=== PATIENT | female | born 1940 | race Caucasian/White ===

== ENCOUNTER 2022-08-01 14:14 | Inpatient (IN) | payer MEDICARE, SELFPAY ==
--- NOTE | ~2022-08-01 | CT_ITS ---
EXAMINATION: CT ABDOMEN AND PELVIS WITHOUT AND WITH CONTRAST CLINICAL INFORMATION: GI bleeding. COMPARISON: None. TECHNIQUE: Contiguous axial thin section helical images of the abdomen and pelvis were performed before and following the administration of oral contrast and 85 mL of intravenous Omnipaque 350. The data set was reformatted in the coronal and sagittal planes and reviewed on an independent workstation. FINDINGS: LUNG BASES: No focal parenchymal or pleural disease. No pericardial effusion. LIVER, GALLBLADDER, BILIARY TREE: Within normal limits. No focal lesion. PANCREAS: No mass or inflammatory changes. SPLEEN: No focal lesion or enlargement. ADRENAL GLANDS AND KIDNEYS: Left adrenal nodule measures -5 Hounsfield units consistent with a lipid rich adenoma. Measures up to 16 mm. No follow-up indicated. No right adrenal lesion. No hydronephrosis or side. Bilateral renal cortical cysts which appear simple. Minimal calcification within the right renal exophytic upper pole lesion. Bosniak 2. No follow-up indicated.. PELVIS: There is no pelvic mass. Pelvic organs within normal limits. URETERS AND BLADDER: Within normal limits.. BOWEL LOOPS: Small axial type hiatus hernia. Medication pills within the gastric lumen noted. There is no evidence for any active GI bleeding. No obstruction. No serosal lesion. Normal appendix.. LYMPHOVASCULAR STRUCTURES: No pathologic enlargement. BONES: No lytic or sclerotic lesions. No fracture. CT/CT gi bleed abd pel wo/w IVcon IMPRESSION: 1. No evidence for any active GI bleeding. 2. Incidental findings as above.
[2022-08-01 14:18] VITALS: BP 143/93; PULSE 77; RESP 19; TEMP 36.6; O2SAT 96; BMI 24.1
--- NOTE | 2022-08-01 14:39 | ED_ITS ---
HPI - General Adult General Chief complaint: GI Bleed Stated complaint: vaginal bleeding Time Seen by Provider: 08/01/22 14:39 Source: patient and family Mode of arrival: ambulatory Limitations: altered mental status History of Present Illness HPI narrative: Patient is an 81-year-old female with history of dementia, unspecificed cancer 15-20 years prior, HLD, and colitis presenting to the emergency department with bright red rectal bleeding since this morning. Patient's son is primary historian due to patient's dementia and memory impairment. He states that the patient and her live independently at [facility]. Patient's was recently hospitalized and is currently at rehab, so patient has been staying with her son. Son states that patient has had mild rectal bleeding from time to time related to her colitis, but that her symptoms have been well controlled with mesalamine. Son states that this morning patient had a large amount of bright red rectal bleeding. She also reports dyspnea on exertion and some lightheadedness. Denies syncope. Denies fevers. Patient also complains of mild lower abdominal pain. She denies any dysuria or flank pain. Denies diarrhea or constipation, denies nausea or vomiting. Denies chest pain. She does endorse mid back pain, however, patient's son states that she slid to the floor last week and complained of the back pain since. She was evaluated by PCP for her back pain on Tuesday, had x-rays as well as a bone density scan, all of which were unremarkable. complaint: rectal bleeding Onset (ago): hour(s) Location: abdomen Severity: mild Associated symptoms: shortness of breath Treatments prior to arrival: none Related Data Allergies Allergy/AdvReac Type Severity Reaction Status Date / Time No Known Allergies Allergy Verified 08/01/22 14:17 Review of Systems Review of Systems: As per HPI. Yes all other systems are reviewed and are negative Constitutional: Constitutional: Reports as per HPI Neurologic: Denies Abnormal speech present PMFSH Social History Social History Advance Directives: Yes Advance Directives on File: No Physical Exam ED Vital Signs: Vital Signs - 24 hr 08/01/22 14:18 08/01/22 16:46 Temperature 98 F 98.9 F Pulse Rate 77 76 Respiratory Rate 19 Blood Pressure 143/93 H 116/52 L Pulse Oximetry 96 95 Oxygen Delivery Method Room Air Room Air BMI result Body Mass Index 24.1 Vital signs have been reviewed and appear to be correct. Blood pressure elevated. Heart rate normal. Respiratory rate normal. Temperature normal. Oxygen saturation normal. Const General: cooperative, no acute distress and alert; No acute distress Nutritional Appearance: average body habitus Orientation/consciousness: oriented to person, oriented to place, oriented to time and patient oriented x3 Limitations: altered mental status (some memory impairment related to dementia) HENMT Head: Yes normocephalic and Yes atraumatic Ears: external ears normal General nose exam: Normal external nose present Face and sinus: Yes face symmetric Mouth: oropharynx normal and moist mucous membranes Throat: Yes uvula midline Eyes Conjunctivae: conjunctival abnormal bilateral pallor Pupils: Equal, round and reactive pupils present Neck Neck: Yes normal visual inspection and Yes supple Chest Chest palpation & inspection: normal inspection of the chest and normal palpation of entire chest wall Resp Effort & Inspection: normal respiratory effort and able to speak in complete sentences Auscultation: clear to auscultation bilaterally Cardio Rate: regular rate Rhythm: regular rhythm Heart sounds: S1 normal heart sound present and S2 normal heart sound present GI Other: Rectal exam chaperoned by SONIA Slade tech. Inspection: Yes normal to inspection, No visible herniation and No visible pulsation Palpation (GI): Soft to palpation and nontender Auscultation: normoactive bowel sounds Rectal Exam - Female: normal sphincter tone and External hemorrhoid(s) present General: Yes no CVA tenderness Back/Spine/Pelvis Back: no CVA tenderness Skin General skin exam: elasticity normal, turgor normal and pallor Neuro General: oriented to person, oriented to place, oriented to time, patient oriented x3, tone normal, moves all extremities, no focal motor deficits and CN's II-XI intact bilaterally Cranial nerves: Yes Equal, round and reactive pupils present Cognition (Neuro): abnormal cognition (memory impairment) Speech: No Abnormal speech present Motor exam (neuro): 5/5 motor strength present throughout and Normal motor muscle tone present throughout Sensory Exam: Normal double simultaneous stimulation for sensation Extrem General: Yes full ROM, Yes no pedal edema and Yes no calf tenderness Psych Mental Status: mental status grossly normal Affect: normal affect Course Course Course Narrative: 16:28 Patient signed out to KEE Vasquez pending CT and UA results. Reevaluation(s) Reevaluation #1: Patient admitted for possible GI bleed. Time: 17:55 Medications Administered Discontinued Medications Generic Name Dose Route Start Last Admin Trade Name Lara PRN Reason Stop Dose Admin Iohexol 100 ml 08/01/22 16:33 08/01/22 16:34 Iohexol 350 Mg/Ml 100 Ml Infus..Btl IV 08/01/22 16:34 85 ml ONCE ONE Administration Medical Decision Making Medical Decision Making MDM Narrative: Patient is an 81-year-old female with history of dementia, unspecificed cancer 15-20 years prior, HLD, and colitis presenting to the emergency department with bright red rectal bleeding since this morning. On exam patient is awake, A+Ox3, but having some memory impairment when reporting history and current symptoms, son states this is consistent with patient's baseline dementia, no focal cristy rological deficits. VS WNL, skin and conjunctival pallor noted, abdomen is soft and nontender, no CVA tenderness, external hemorrhoids on rectal exam, no gross bleeding, however bright red blood noted on patient's underwear. Concern for lower GI bleed versus colitis/IBD, hemorrhoids, diverticulitis, malignancy/mass, also considering concurrent UTI given lower abdominal discomfort. Plan: Labs including T&S, UA, OBS, CT GI bleed Please refer to course for remaining clinical decision making. Differential Diagnosis Differential Diagnoses: The differential diagnosis associated with the presentation includes As above. Lab Data 08/01/22 15:26 08/01/22 15:26 Labs: Lab Results 08/01/22 08/01/22 08/01/22 Range/Units 15:16 15:26 15:26 WBC 15.1 H (4.8-10.8) X10*3/uL RBC 3.66 L (4.20-5.50) X10*6/uL Hgb 9.8 L (12.0-16.0) g/dl Hct 30.5 L (37.0-47.0) % MCV 83.3 (80.0-98.0) fL MCH 26.8 L (27.0-33.0) pg MCHC 32.1 (31.0-35.0) g/dl RDW 15.9 (11.0-16.0) % Plt Count 382 (160-400) X10*3/uL MPV 9.1 L (9.4-12.3) fL Immature Gran % (Auto) 0.5 H (0.0-0.4) % Neut % (Auto) 77.5 H (45-73) % Lymph % (Auto) 14.8 L (20-40) % [place] % (Auto) 5.8 (2-11) % Eos % (Auto) 0.9 (0-4) % Baso % (Auto) 0.5 (0-2) % Lymph # (Auto) 2.2 (1.2-4.9) X10*3/uL [place] # (Auto) 0.9 (0.1-1.2) X10*3/uL Eos # (Auto) 0.1 (0.0-0.4) X10*3/uL Baso # (Auto) 0.1 (0.0-0.2) X10*3/uL Abs Immat Gran (auto) 0.08 H (0.00-0.03) X10*3/uL Absolute Neuts (auto) 11.7 H (2.0-8.3) x10*3/uL Absolute Nucleated RBC 0.000 (0.0-0.012) X10*3/uL Nucleated RBC % (auto) 0.0 (0.0-0.2) /100WBC PT 11.5 (10.0-13.1) SEC INR 1.0 (0.9-1.1) Sodium (135-145) mmol/L Potassium (3.3-5.1) mmol/L Chloride (96-108) mmol/L Carbon Dioxide (22-29) mmol/L Anion Gap (12-20) BUN (9-16) mg/dL Creatinine (0.5-1.4) mg/dL Estim Creat Clear Calc Estimated GFR Random Glucose (60-115) mg/dL Calcium (8.4-10.2) mg/dL Total Bilirubin (0.0-1.0) mg/dL AST (5-31) U/L ALT (0-31) U/L Alkaline Phosphatase (39-117) U/L Total Protein (6.5-8.0) g/dL Albumin (3.5-5.0) g/dL Stool Occult Blood POSITIVE (NEGATIVE) Blood Type Antibody Screen 08/01/22 08/01/22 Range/Units 15:26 15:26 WBC (4.8-10.8) X10*3/uL RBC (4.20-5.50) X10*6/uL Hgb (12.0-16.0) g/dl Hct (37.0-47.0) % MCV (80.0-98.0) fL MCH (27.0-33.0) pg MCHC (31.0-35.0) g/dl RDW (11.0-16.0) % Plt Count (160-400) X10*3/uL MPV (9.4-12.3) fL Immature Gran % (Auto) (0.0-0.4) % Neut % (Auto) (45-73) % Lymph % (Auto) (20-40) % [place] % (Auto) (2-11) % Eos % (Auto) (0-4) % Baso % (Auto) (0-2) % Lymph # (Auto) (1.2-4.9) X10*3/uL [place] # (Auto) (0.1-1.2) X10*3/uL Eos # (Auto) (0.0-0.4) X10*3/uL Baso # (Auto) (0.0-0.2) X10*3/uL Abs Immat Gran (auto) (0.00-0.03) X10*3/uL Absolute Neuts (auto) (2.0-8.3) x10*3/uL Absolute Nucleated RBC (0.0-0.012) X10*3/uL Nucleated RBC % (auto) (0.0-0.2) /100WBC PT (10.0-13.1) SEC INR (0.9-1.1) Sodium 140 (135-145) mmol/L Potassium 3.6 (3.3-5.1) mmol/L Chloride 109 H (96-108) mmol/L Carbon Dioxide 22 (22-29) mmol/L Anion Gap 13 (12-20) BUN 24 H (9-16) mg/dL Creatinine 0.82 (0.5-1.4) mg/dL Estim Creat Clear Calc 47.5 Estimated GFR > 60 Random Glucose 105 (60-115) mg/dL Calcium 9.4 (8.4-10.2) mg/dL Total Bilirubin 0.2 (0.0-1.0) mg/dL AST 19 (5-31) U/L ALT 16 (0-31) U/L Alkaline Phosphatase 130 H (39-117) U/L Total Protein 6.8 (6.5-8.0) g/dL Albumin 3.7 (3.5-5.0) g/dL Stool Occult Blood (NEGATIVE) Blood Type O Positive Antibody Screen NEGATIVE Discharge Plan Discharge Clinical Impression: GI bleed, Anemia Patient Disposition: Admitted As Inpatient
[2022-08-01 15:36] LABS: MANUAL DIFF FLAG NO
[2022-08-01 15:42] LABS: Basophils Absolute Auto 0.1 X10*3/uL (0.0-0.2); Basophils Percent Auto 0.5 % (0-2); Eosinophils Absolute Auto 0.1 X10*3/uL (0.0-0.4); Eosinophils Percent Auto 0.9 % (0-4); Hematocrit 30.5 % (37.0-47.0); Hemoglobin 9.8 g/dl (12.0-16.0); Imm Gran Abs Auto 0.08 X10*3/uL (0.00-0.03); Imm Gran Pct Auto 0.5 % (0.0-0.4); Lymphocytes Absolute Auto 2.2 X10*3/uL (1.2-4.9); Lymphocytes Percent Auto 14.8 % (20-40); Mean Corpuscular HGB Conc 32.1 g/dl (31.0-35.0); Mean Corpuscular Hemoglobin 26.8 pg (27.0-33.0); Mean Corpuscular Volume 83.3 fL (80.0-98.0); Mean Platelet Volume 9.1 fL (9.4-12.3); Monocytes Absolute Auto 0.9 X10*3/uL (0.1-1.2); Monocytes Percent Auto 5.8 % (2-11); Neutrophils Absolute Auto 11.7 x10*3/uL (2.0-8.3); Neutrophils Percent Auto 77.5 % (45-73); Platelet Count 382 X10*3/uL (160-400); Red Blood Count 3.66 X10*6/uL (4.20-5.50); Red Cell Distribution Width 15.9 % (11.0-16.0); White Blood Count 15.1 X10*3/uL (4.8-10.8)
[2022-08-01 15:48] LABS: Prothrombin Time 11.5 SEC (10.0-13.1)
[2022-08-01 15:58] LABS: Alanine Aminotransferase 16 U/L (0-31); Albumin Level 3.7 g/dL (3.5-5.0); Alkaline Phosphatase 130 U/L (39-117); Anion Gap 13 (12-20); Aspartate Amino Transferase 19 U/L (5-31); Bilirubin Total 0.2 mg/dL (0.0-1.0); Blood Urea Nitrogen 24 mg/dL (9-16); Calcium 9.4 mg/dL (8.4-10.2); Carbon Dioxide 22 mmol/L (22-29); Chloride 109 mmol/L (96-108); Creatinine Clr Calc Pharmacy 47.5; Estimated Glomerular Filt Rate > 60; Glucose Random 105 mg/dL (60-115); Potassium 3.6 mmol/L (3.3-5.1); Sodium 140 mmol/L (135-145); Total Protein 6.8 g/dL (6.5-8.0)
[2022-08-01 16:19] LABS: OBS Int Ctl Valid YES; OBS1 POSITIVE (NEGATIVE)
[2022-08-01] MEDS: iohexoL 350 MG/ML 100 ML INFUS..BTL IV (16:34)
[2022-08-01 16:46] VITALS: BP 116/52; PULSE 76; TEMP 37.2; O2SAT 95
--- NOTE | 2022-08-01 18:18 | P.HPHOSP_ITS ---
the patient was seen and evaluated with KEE Rene. I agree with his note, assessment and plan with the following. An 81 years old lady with PMH of ulcerative colitis who presents with gen weakness, back pain and BRBPR. admitted for eval of bleeding and evidence of UTI. BRBPR could be 2/2 hemorroids pending GI eval follow H&H pending urine Cx, treat with IV antibiotics Rest of evaluations by PA note. History of Present Illness Date of Service: 08/01/22 Attending physician on admission: Cherelle Lawton Chief Complaint: Bright red blood per rectum Pt is an 81-year-old female with a PMH significant for?unspecified dementia, unspecified cancer 15-20 years ago, and colitis who presents to the ED with?bright red blood per rectum since this morning. Patient with unspecified dementia at baseline, patient's short-term memory particularly affected. Patient continually repeats same complaint and history within 30 seconds to 1 minute. HPI supplemented through family and chart review. Patient apparently lives with her at [facility], the currently at rehab and patient staying with her son. Son notes that earlier today patient had a ?large amount? of bright red blood per rectum. Patient has a history of colitis and has experienced mild rectal bleeding secondary to this in the past, has been well controlled on mesalamine. Patient complains of mild suprapubic pain, but denies fevers, chills, nausea, diarrhea. Occasional lightheadedness and dizziness, no LOC. Patient also experienced an episode of ?sliding to the floor? last week when she attempted to stand up from her bed. Patient has been complaining of lower back pain since. Patient saw her PCP on Tuesday for further evaluation. Workup with x-rays and bone density scans were unremarkable. No chest pain/pressure, palpitations. No shortness of breath. Patient's son states that his mother was diagnosed with severe ulcerative colitis around 20 years ago, hospitalized prior at least twice for flare-ups. Patient has ulcerative colitis has been mostly well controlled on mesalamine. Patient did experience some breakthrough bleeding a few months ago though likely attributed to medication noncompliance secondary to patient's underlying dementia. In the ED patient was afebrile with variable blood pressure. Labs were significant for leukocytosis of 15.1, H&H 9.8/30.5. Electrolytes WNL. Renal function baseline. Hepatic function baseline. UA positive for UTI. Stool positive for occult blood. CT?of abdomen and pelvis found no evidence for any active GI bleeding. Pt will be admitted to the hospital for treatment further evaluation UTI, symptomatic anemia, and possible GI bleed. Review of Systems Review of Systems: Hematochezia Lightheadedness, dizziness Lower leg weakness Suprapubic discomfort Lower back pain Patient denies fever, chills, nausea, vomiting No chest pain/pressure, palpitations Denies shortness of breath Yes all other systems are reviewed and are negative PMFSH Social History Advance Directives: Yes Advance Directives on File: No Meds Allergies Allergy/AdvReac Type Severity Reaction Status Date / Time No Known Allergies Allergy Verified 08/01/22 14:17 Active Medications: Current Medications Pharmacy Consult (Consult Rx Perform Med Rec) 1 each MISCELLANE ONCE PRN PRN Reason: Consult order Home Medications Medication Instructions Recorded Confirmed Last Taken Type atorvastatin 20 mg tablet 20 mg PO DAILY 08/01/22 08/01/22 08/01/22 09:00 History cholecalciferol (vitamin D3) 50 50 mcg PO DAILY 08/01/22 08/01/22 08/01/22 09:00 History mcg (2,000 unit) tablet (Vitamin D3) donepezil 5 mg tablet 5 mg PO BEDTIME 08/01/22 08/01/22 07/31/22 History escitalopram oxalate 20 mg tablet 20 mg PO DAILY 08/01/22 08/01/22 08/01/22 09:00 History loratadine 5 mg chewable tablet 5 mg PO DAILY 08/01/22 08/01/22 08/01/22 09:00 History mesalamine 800 mg tablet,delayed 2,400 mg PO BID 08/01/22 08/01/22 08/01/22 09:00 History release Physical Exam Vital Signs and Narrative: Vital Signs: Last Vital Signs Temp 98.9 F 08/01/22 16:46 Pulse 76 08/01/22 16:46 Resp 19 08/01/22 14:18 BP 116/52 L 08/01/22 16:46 Pulse Ox 95 08/01/22 16:46 O2 Del Method Room Air 08/01/22 16:46 BMI result Body Mass Index 24.1 Constitutional: Alert, in no acute distress. Mental Status: Oriented to person, place and time, but with obvious short term memory impairment. Patient continually repeating same history and complaint. Eyes: Pupils are equal, round, and reactive to light. Ear, Nose, and Throat: Oropharynx clear, mucous membranes moist. Ears and nose without deformities. Trachea midline. Respiratory: Clear to auscultation bilaterally. No wheezing, rales, or rhonchi. Cardiovascular: S1, S2 regular. No murmurs, rubs, or gallops. Gastrointestinal: Abdomen soft, non-distended. Mild suprapubic tenderness. Normal bowel sounds. Neurologic: Cranial nerves II-XII are grossly intact bilaterally. No focal neurological deficits. Moves all extremities spontaneously. Skin: No rashes or lesions noted. Musculoskeletal: No cyanosis or clubbing. No lower back tenderness elicited upon palpation. Extremities: No edema. Psychiatric: Pleasant, cooperative. Results Labs 08/01/22 15:26 08/01/22 15:26 Labs: Laboratory Results - last 24 hr 08/01/22 08/01/22 08/01/22 15:16 15:26 15:26 MCV 83.3 MCH 26.8 L MCHC 32.1 RDW 15.9 Plt Count 382 MPV 9.1 L Immature Gran % (Auto) 0.5 H Neut % (Auto) 77.5 H Lymph % (Auto) 14.8 L [place] % (Auto) 5.8 Eos % (Auto) 0.9 Baso % (Auto) 0.5 Lymph # (Auto) 2.2 [place] # (Auto) 0.9 Eos # (Auto) 0.1 Baso # (Auto) 0.1 Abs Immat Gran (auto) 0.08 H Absolute Neuts (auto) 11.7 H Absolute Nucleated RBC 0.000 Nucleated RBC % (auto) 0.0 PT 11.5 INR 1.0 Anion Gap Estim Creat Clear Calc Estimated GFR Random Glucose Calcium Total Bilirubin AST ALT Alkaline Phosphatase Total Protein Albumin Stool Occult Blood POSITIVE Blood Type Antibody Screen 08/01/22 08/01/22 15:26 15:26 MCV MCH MCHC RDW Plt Count MPV Immature Gran % (Auto) Neut % (Auto) Lymph % (Auto) [place] % (Auto) Eos % (Auto) Baso % (Auto) Lymph # (Auto) [place] # (Auto) Eos # (Auto) Baso # (Auto) Abs Immat Gran (auto) Absolute Neuts (auto) Absolute Nucleated RBC Nucleated RBC % (auto) PT INR Anion Gap 13 Estim Creat Clear Calc 47.5 Estimated GFR > 60 Random Glucose 105 Calcium 9.4 Total Bilirubin 0.2 AST 19 ALT 16 Alkaline Phosphatase 130 H Total Protein 6.8 Albumin 3.7 Stool Occult Blood Blood Type O Positive Antibody Screen NEGATIVE Imaging Radiologist's Impressions: Impressions Abdomen/Pelvis CT 08/01/22 16:35 IMPRESSION: 1. No evidence for any active GI bleeding. 2. Incidental findings as above. Assessment and Plan (1) Anemia: Status: Acute (2) UTI (urinary tract infection): Status: Acute (3) Bright red blood per rectum: Status: Acute Plan Pt is an 81-year-old female with a PMH significant for?unspecified dementia, unspecified cancer 15-20 years ago, and colitis who presents to the ED with?bright red blood per rectum since this morning. Pt will be admitted to the hospital for treatment further evaluation UTI, symptomatic anemia, and possible GI bleed. Bright red blood per rectum Possibly secondary to ulcerative colitis CT of abdomen/pelvis negative for active GI bleeding Patient's H&H 9.8/30.5 Will check CRP, ESR for possible UC flare-up Clear liquid diet GI consult Pneumatic boots for DVT prophylaxis Follow CBC UTI UA positive for UTI Will treat with ceftriaxone, started 08/01/2022 Hx of ulcerative colitis Continue mesalamine Back pain Pt complains of lower back pain with walking, likely secondary to a two episodes of sliding to the floor from her bed when trying to get up Patient states her legs ?kind of give out? when she tries to stand up from the b ed Back non-tender during physical exam Patient was evaluated by PCP for back pain on Tuesday, x-rays and bone density scan negative CT of abd/pelvis today negative for fracture Acetaminophen for pain PT evaluation Dementia, unspecified Patient has been having cognitive impairment for the past 7-8 years Was diagnosed with severe dementia 2-3 years ago, has been declining since Continue donepezil Mood disorder Continuous escitalopram DNR/DNI Attending:?Dr. Lawton DVT Prophylaxis: Pneumatic boots Pt will require a hospitalization of at least two nights for treatment of?UTI, symptomatic anemia, and possible GI bleed. Time Spent With Patient Time: Total time managing care of this patient today ____ minutes. Quality Stroke Does the patient have a stroke diagnosis?: No VTE Prior VTE?: No VTE Risk Level:: Medical - moderate - high VTE Device Contraindication: N/A - Device Ordered VTE Drug Contraindication: Treatment Not Indicated
[2022-08-01 18:30] LABS: Appearance Urine Clear; Color Urine Yellow; Glucose Urine UA Negative (Negative); Leukocyte Esterase Urine Moderate (2+) (Negative); Nitrite Urine Positive (Negative); PH 5.5 (5.0-9.0); Specific Gravity - Urine >= 1.030 (1.005-1.025); UMIC TRIGGER UACC YES; Urine Blood Negative (Negative); Urine Ketones Negative (Negative); Urine Protein Negative (Neg-Trace)
--- NOTE | 2022-08-01 18:33 | PHA.MEDREC ---
Pharmacy Consult ? Medication Reconciliation Pharmacy has completed the medication reconciliation. Spoke to patient's son Alo ([phone]) to confirm meds.
[2022-08-01 18:39] LABS: Bacteria Urine 4+ (None Seen); Hyaline Casts Urine 0-2 /LPF (0-2); RBC Urine 0-2 /HPF (0-2); Squamous Epithelial Cell Urine 0-2 /HPF (0-2); UACC Culture Trigger YES; WBC Urine 21-50 /HPF (0-5)
[2022-08-01 19:11] VITALS: BP 137/79; PULSE 74; RESP 19; TEMP 37.1; O2SAT 96
--- NOTE | 2022-08-01 19:15 | PC.NURSE ---
verified med rec completed by pharmacy
[2022-08-01 19:34] LABS: C Reactive Protein 0.48 mg/dL (< or = 0.50)
--- NOTE | 2022-08-01 19:56 | PC.NURSE ---
charge called pharmacy for mesalamine order med not in ED pyxis med in [facility] med to be brought to ED
--- NOTE | 2022-08-01 20:04 | PC.NURSE ---
pt to receive ceftriaxone IV infusion bldcs and lactic acid not ordered TigerText sent to hospitalist, Dr Angel lactic acid verbal order entered ceftriaxone to follow after labs drawn
[2022-08-01] MEDS: Donepezil HCl 5 MG TABLET PO (20:05)
--- NOTE | 2022-08-01 20:05 | PC.NURSE ---
donepezil HCl 5mg PO and mesalamine 2400 mg PO administered per MAR
[2022-08-01] MEDS: Mesalamine 400 MG CAP.DRTAB. 2400 MG PO (20:06)
--- NOTE | 2022-08-01 20:16 | PC.NURSE ---
Addendum entered by Lenka Callejas 08/01/22 21:58: note erroneously under CLIFFORD Jean-Baptiste note entered by CLIFFORD Og stated pt had XR for back on Tuesday and bone density test on Tuesday by [facility] provider notified Original Note: pt's sonAlo called to update staff on pt's dementia, pt's hx note already health care proxy form placed in pt's paper chart- to be addressed by pt's son Alo
[2022-08-01 20:17] LABS: Erythrocyte Sedimentation Rate 30 MM/HR (0-20)
--- NOTE | 2022-08-01 20:17 | PC.NURSE ---
bldcs and lactic acid drawn, pts name/ verified, labels affixed to specimen containers specimens sent to lab via tube system lactic acid sent on ice by this nurse
[2022-08-01] MEDS: cefTRIAXone sodium 1 GM in 0.9 % Sodium Chloride 50 ML IV (20:20)
--- NOTE | 2022-08-01 20:20 | PC.NURSE ---
ceftriaxone 1gm infusion hung and running per APR line flushed prior to infusion for patency
[2022-08-01 20:50] LABS: Lactic Acid 1.7 mmol/L (0.5-2.0)
--- NOTE | 2022-08-01 22:24 | PC.NURSE ---
N2N report given to CLIFFORD Alba; pt to room 375
--- NOTE | 2022-08-01 22:32 | PC.NURSE ---
pt ambulated to restroom standby assist steady gait
[2022-08-01 22:47] VITALS: BMI 25.2
[2022-08-01 23:00] VITALS: BP 162/72; PULSE 67; RESP 18; TEMP 36.1; O2SAT 98
[2022-08-01] MEDS: 0.9 % Sodium Chloride Flush 3 ML SYRINGE IVFLUSH (23:01)
[2022-08-02 04:00] VITALS: BP 143/60; PULSE 64; RESP 18; TEMP 36.5; O2SAT 98
[2022-08-02 06:43] LABS: Hematocrit 31.6 % (37.0-47.0); Hemoglobin 9.9 g/dl (12.0-16.0); Mean Corpuscular HGB Conc 31.3 g/dl (31.0-35.0); Mean Corpuscular Hemoglobin 26.5 pg (27.0-33.0); Mean Corpuscular Volume 84.7 fL (80.0-98.0); Mean Platelet Volume 9.4 fL (9.4-12.3); Platelet Count 353 X10*3/uL (160-400); Red Blood Count 3.73 X10*6/uL (4.20-5.50); Red Cell Distribution Width 16.1 % (11.0-16.0); White Blood Count 12.1 X10*3/uL (4.8-10.8)
[2022-08-02 06:51] LABS: Anion Gap 15 (12-20); Blood Urea Nitrogen 16 mg/dL (9-16); Calcium 9.4 mg/dL (8.4-10.2); Carbon Dioxide 20 mmol/L (22-29); Chloride 110 mmol/L (96-108); Creatinine Clr Calc Pharmacy 57.9; Estimated Glomerular Filt Rate > 60; Glucose Random 96 mg/dL (60-115); Potassium 3.5 mmol/L (3.3-5.1); Sodium 141 mmol/L (135-145)
[2022-08-02 07:30] VITALS: BP 139/65; PULSE 72; RESP 18; TEMP 36.8; O2SAT 98
--- NOTE | 2022-08-02 07:31 | PM.GICN ---
History of Present Illness Data of Consult Service Date: 08/02/22 Requesting physician: Brody Perez Primary Care Provider: Parag Snyder MD [facility] Reason for consult: anemia, GI bleeding, rectal bleeding, colitis on mesalamine 81 YF with unspecified dementia, unspecified cancer 15-20 years ago, and colitis seen at [facility] ED on 08/01/22 with?bright red blood per rectum since yesterday morning.? Patient with unspecified dementia at baseline with poor short-term memory.? ? History obtained from the pt and her son who was at the bedsideand chart review.? Patient lives with her at [facility], the currently at rehab and patient staying with her son.? Pt was diagnosed with UC 20 yrs ago and is followed by Dr Melendez at [facility]. She had severe symptoms and had to be hospitalized and treated with steroids. UC has been well controlled with mesalamine. Son noted that patient had a ?large amount? of bright red blood per rectum yesterday morning.? Blood was separate and there was some blood mixed with the stool. Patient has a history of colitis and had mild rectal bleeding past winter which was attributed to medication noncompliance secondary to patient's underlying dementia and treated with mesalamine suppositories with resolution., Colitis has been well controlled with mesalamine.? Patient complained of mild suprapubic pain, but denied fevers, chills, nausea, diarrhea.? Occasional lightheadedness and dizziness, no LOC.? Patient also experienced an episode of ?sliding to the floor? last week when she attempted to stand up from her bed.? Patient has been complaining of lower back pain since.? Patient saw her PCP on Tuesday for further evaluation.? Workup with x-rays and bone density scans were unremarkable.? No chest pain/pressure, palpitations.? No shortness of breath.? Patient's son stated that his mother was diagnosed with severe ulcerative colitis around 20 years ago, hospitalized prior at least twice for flare-ups.? Pt denies smoking and admits to occasional ETOH use. Patient admits to loud snoring and may have undiagnosed sleep apnea. Patient denies known family history of IBD or GI malignancy. In the ED patient was afebrile with variable blood pressure. Labs were significant for leukocytosis of 15.1, H&H 9.8/30.5.? Electrolytes WNL.? Renal function baseline.? Hepatic function baseline.? UA positive for UTI.? Stool positive for occult blood. 08/01/[address] SCAN SHOWED: BOWEL LOOPS: Small axial type hiatus hernia. Medication pills within the gastric lumen noted. There is no evidence for any active GI bleeding. No obstruction. No serosal lesion. Normal appendix.. CT?of abdomen and pelvis found no evidence for any active GI bleeding. Pt was admitted for treatment of UTI, symptomatic anemia, and possible GI bleed. Review of Systems Review of Systems: Hematochezia Lightheadedness, dizziness Lower leg weakness Suprapubic discomfort Lower back pain Patient denies fever, chills, nausea, vomiting No chest pain/pressure, palpitations Denies shortness of breath Yes all other systems are reviewed and are negative [facility] Past Medical History Medical History (Updated 08/11/22 @ 00:15 by Lexie Guzman) Anemia Ulcerative colitis Social History Social History Household Members: Spouse Housing: Assisted Living Facility Alcohol intake: never Patient Tobacco Use Status: Never used Tobacco Second Hand Smoke Exposure: No service: No Meds Allergies Allergy/AdvReac Type Severity Reaction Status Date / Time No Known Allergies Allergy Verified 08/01/22 14:17 Active Medications: Current Medications Acetaminophen (Acetaminophen 325 Mg Tablet) 650 mg PO Q6H PRN PRN Reason: Pain, Mild (Pain Scale 1-3) Atorvastatin Calcium (Atorvastatin Calcium 20 Mg Tablet) 20 mg PO DAILY [facility] Docusate Sodium (Docusate Sodium 100 Mg Capsule) 100 mg PO DAILY PRN PRN Reason: Constipation Donepezil HCl (Donepezil Hcl 5 Mg Tablet) 5 mg PO BEDTIME [facility] Last Admin: 08/01/22 20:05 Dose: 5 mg Escitalopram Oxalate (Escitalopram Oxalate 20 Mg Tablet) 20 mg PO DAILY [facility] Ceftriaxone Sodium 1 gm/ (Sodium Chloride) 50 mls @ 100 mls/hr IV Q24H [facility] Last Infusion: 08/01/22 20:51 Dose: Infused Loratadine (Loratadine 10 Mg Tablet) 5 mg PO DAILY [facility] Mesalamine (Mesalamine 400 Mg Cap.Drtab.) 2,400 mg PO BID [facility] Last Admin: 08/01/22 20:06 Dose: 2,400 mg Pharmacy Consult (Consult Rx Perform Med Rec) 1 each MISCELLANE ONCE PRN PRN Reason: Consult order Sodium Chloride (0.9 % Sodium Chloride Flush 3 Ml Syringe) [facility] Last Admin: 08/01/22 23:01 Dose: 3 ml Vitamin D (Cholecalciferol (Vitamin D3) 25 Mcg Tablet) 50 mcg PO DAILY [facility] Home Medications Medication Instructions Recorded Confirmed Last Taken Type atorvastatin 20 mg tablet 20 mg PO DAILY 08/01/22 08/01/22 08/01/22 09:00 History cholecalciferol (vitamin D3) 50 50 mcg PO DAILY 08/01/22 08/01/22 08/01/22 09:00 History mcg (2,000 unit) tablet (Vitamin D3) donepezil 5 mg tablet 5 mg PO BEDTIME 08/01/22 08/01/22 07/31/22 History escitalopram oxalate 20 mg tablet 20 mg PO DAILY 08/01/22 08/01/22 08/01/22 09:00 History loratadine 5 mg chewable tablet 5 mg PO DAILY 08/01/22 08/01/22 08/01/22 09:00 History mesalamine 800 mg tablet,delayed 2,400 mg PO BID 08/01/22 08/01/22 08/01/22 09:00 History release Physical Exam Vital Signs: Vital Signs: Last Vital Signs Temp 97.7 F 08/02/22 04:00 Pulse 64 08/02/22 04:00 Resp 18 08/02/22 04:00 BP 143/60 H 08/02/22 04:00 Pulse Ox 98 08/02/22 04:00 O2 Del Method Room Air 08/02/22 04:00 BMI result Body Mass Index 25.2 Const: General: healthy appearing and no acute distress Nutritional Appearance: overweight Orientation/consciousness: patient oriented x3 Limitations: no limitations HEENT: Head: Yes normal to inspection Ears: hearing grossly normal bilaterally Eyes: Sclerae: sclerae normal Pupils: Equal, round and reactive pupils present Neck: Neck: Yes normal visual inspection Chest: Chest palpation & inspection: normal inspection of the chest Resp: Effort & Inspection: normal respiratory effort Auscultation: clear to auscultation bilaterally Cardio: Palpation: normal PMI Rate: regular rate Rhythm: regular rhythm Heart sounds: S1 normal heart sound present, S2 normal heart sound present and no murmurs GI: Palpation (GI): Soft to palpation, nontender and No hepatosplenomegaly present Auscultation: normal bowel sounds Rectal Exam - Female: deferred Skin: General skin exam: no rashes or lesions noted Neuro: General: patient oriented x3, gait normal and moves all extremities Cranial nerves: Yes Equal, round and reactive pupils present Psych: Appearance: grossly normal Mental Status: mental status grossly normal Results Labs 08/02/22 05:47 08/02/22 05:47 Labs: Short CBC 08/01/22 08/02/22 Range/Units 15:26 05:47 WBC 15.1 H 12.1 H (4.8-10.8) X10*3/uL Hgb 9.8 L 9.9 L (12.0-16.0) g/dl Hct 30.5 L 31.6 L (37.0-47.0) % Plt Count 382 353 (160-400) X10*3/uL BMP 08/01/22 08/02/22 15:26 05:47 Sodium 140 141 Potassium 3.6 3.5 Chloride 109 H 110 H Carbon Dioxide 22 20 L BUN 24 H 16 Creatinine 0.82 0.73 Calcium 9.4 9.4 Liver Function 08/01/22 Range/Units 15:26 Total Bilirubin 0.2 (0.0-1.0) mg/dL AST 19 (5-31) U/L ALT 16 (0-31) U/L Alkaline Phosphatase 130 H (39-117) U/L Albumin 3.7 (3.5-5.0) g/dL Urine 08/01/22 Range/Units 18:22 Urine Color Yellow Urine Appearance Clear Urine pH 5.5 (5.0-9.0) Ur Specific [place] >= 1.030 H (1.005-1.025) Urine Protein Negative (Neg-Trace) mg/dL Urine Glucose (UA) Negative (Negative) mg/dL Assessment and Plan (1) Bright red blood per rectum: Status: Acute (2) Ulcerative colitis: Status: Inactive Plan 81 YF with unspecified dementia, unspecified cancer 15-20 years ago, and colitis seen at [facility] on 08/01/22 with?bright red blood per rectum since yesterday morning.? Patient with unspecified dementia at baseline with poor short-term memory.? ? Pt was diagnosed with UC 20 yrs ago and is followed by Dr Melendez at [facility]. UC has been well controlled with mesalamine. Rectal bleeding is likely from hemorrhoids or possible flare of ulcerative colitis or ischemic colitis RECOMMENDATIONS: 1. Continue mesalamine 2. Pt will be scheduled for a Flexible Sigmoidoscopy tomorrow am. Procedure and potential complications were reviewed with the patient and her son who was present at the bedside. Time Spent With Patient Time: Total time managing care of this patient today ____ minutes. Procedures Date of Service Date of Service: 08/12/22
[2022-08-02] MEDS: Escitalopram Oxalate 20 MG TABLET PO (09:03)
[2022-08-02] MEDS: Cholecalciferol (Vitamin D3) 25 MCG TABLET 50 MCG PO (09:03)
[2022-08-02] MEDS: Loratadine 10 MG TABLET 5 MG PO (09:03)
[2022-08-02] MEDS: Atorvastatin Calcium 20 MG TABLET PO (09:03)
[2022-08-02] MEDS: Mesalamine 400 MG CAP.DRTAB. 2400 MG PO ×2 (09:04→21:10)
[2022-08-02] MEDS: 0.9 % Sodium Chloride Flush 3 ML SYRINGE IVFLUSH ×3 (09:06→19:31)
[2022-08-02 09:14] LABS: Iron 29 mcg/dL (30-160); Percent Iron Saturation 9 % (15-50); Total Iron Binding Capacity 309 mcg/dL (228-428); Unsaturated Iron Binding 280 ug/dL
--- NOTE | 2022-08-02 11:54 | MHC.CM.PN ---
DX GIB Patient lives with her spouse at [facility]. She is independent with all functional mobility. DP return to [facility]. Her son will provide transportation home.
--- NOTE | 2022-08-02 13:18 | HO.PM.IMPN ---
Subjective Subjective Date of Service: 08/02/22 Interval History: Seen and evaluated Denies any fever or chills having blood w stool No other overnight events Review of Systems Review of Systems: Yes all other systems are reviewed and are negative Physical Exam Vital Signs: Vital Signs: Last Vital Signs Temp 98.3 F 08/02/22 07:30 Pulse 72 08/02/22 07:30 Resp 18 08/02/22 07:30 BP 139/65 08/02/22 07:30 Pulse Ox 98 08/02/22 07:30 O2 Del Method Room Air 08/02/22 07:30 BMI result Body Mass Index 25.2 Const: Other: Constitutional : Awake, interactive, not in distress Neck : Normal inspection, Supple Cardiovascular : RRR, no JVP, no lower extremity edema Respiratory : good bilateral air entry, no crackles, wheezes or rhonchi Gastrointestinal: soft, lax, Normal bowel sounds, Non tender Skin : Warm, Dry Neurological : Alert & oriented x3, No focal deficit Objective Data Active Medications Acetaminophen (Acetaminophen 325 Mg Tablet) 650 mg PO Q6H PRN PRN Reason: Pain, Mild (Pain Scale 1-3) Atorvastatin Calcium (Atorvastatin Calcium 20 Mg Tablet) 20 mg PO DAILY [facility] Last Admin: 08/02/22 09:03 Dose: 20 mg Documented By: NITO Salyer Butter/Zinc Oxide (Salyer Butter/Zinc Oxide Supp.Rect) 1 supp AL BID [facility] Docusate Sodium (Docusate Sodium 100 Mg Capsule) 100 mg PO DAILY PRN PRN Reason: Constipation Donepezil HCl (Donepezil Hcl 5 Mg Tablet) 5 mg PO BEDTIME [facility] Last Admin: 08/01/22 20:05 Dose: 5 mg Documented By: NAIMA Escitalopram Oxalate (Escitalopram Oxalate 20 Mg Tablet) 20 mg PO DAILY [facility] Last Admin: 08/02/22 09:03 Dose: 20 mg Documented By: NITO Ceftriaxone Sodium 1 gm/ (Sodium Chloride) 50 mls @ 100 mls/hr IV Q24H [facility] Last Infusion: 08/01/22 20:51 Dose: 0 mls/hr Documented By: NAIMA Loratadine (Loratadine 10 Mg Tablet) 5 mg PO DAILY [facility] Last Admin: 08/02/22 09:03 Dose: 5 mg Documented By: NITO Mesalamine (Mesalamine 400 Mg Cap.Drtab.) 2,400 mg PO BID [facility] Last Admin: 08/02/22 09:04 Dose: 2,400 mg Documented By: NITO Pharmacy Consult (Consult Rx Perform Med Rec) 1 each MISCELLANE ONCE PRN PRN Reason: Consult order Sodium Chloride (0.9 % Sodium Chloride Flush 3 Ml Syringe) 3 ml IVFLUSH QSHIFT [facility] Last Admin: 08/02/22 09:06 Dose: 3 ml Documented By: NITO Vitamin D (Cholecalciferol (Vitamin D3) 25 Mcg Tablet) 50 mcg PO DAILY [facility] Last Admin: 08/02/22 09:03 Dose: 50 mcg Documented By: NITO Labs 08/02/22 05:47 08/02/22 05:47 Labs: Laboratory Results - last 24 hr 08/01/22 08/01/22 08/01/22 15:16 15:26 15:26 MCV 83.3 MCH 26.8 L MCHC 32.1 RDW 15.9 Plt Count 382 MPV 9.1 L Immature Gran % (Auto) 0.5 H Neut % (Auto) 77.5 H Lymph % (Auto) 14.8 L [place] % (Auto) 5.8 Eos % (Auto) 0.9 Baso % (Auto) 0.5 Lymph # (Auto) 2.2 [place] # (Auto) 0.9 Eos # (Auto) 0.1 Baso # (Auto) 0.1 Abs Immat Gran (auto) 0.08 H Absolute Neuts (auto) 11.7 H Absolute Nucleated RBC 0.000 Nucleated RBC % (auto) 0.0 ESR PT 11.5 INR 1.0 Anion Gap Estim Creat Clear Calc Estimated GFR Random Glucose Lactic Acid Calcium Iron TIBC % Saturation Unsat Iron Binding Total Bilirubin AST ALT Alkaline Phosphatase C-Reactive Protein Total Protein Albumin Urine Color Urine Appearance Urine pH Ur Specific [place] Urine Protein Urine Glucose (UA) Urine Ketones Urine Blood Urine Nitrite Ur Leukocyte Esterase Urine RBC Urine WBC Ur Squamous Epith Cells Urine Bacteria Hyaline Casts Stool Occult Blood POSITIVE Blood Type Antibody Screen 08/01/22 08/01/22 08/01/22 15:26 15:26 15:26 MCV MCH MCHC RDW Plt Count MPV Immature Gran % (Auto) Neut % (Auto) Lymph % (Auto) [place] % (Auto) Eos % (Auto) Baso % (Auto) Lymph # (Auto) [place] # (Auto) Eos # (Auto) Baso # (Auto) Abs Immat Gran (auto) Absolute Neuts (auto) Absolute Nucleated RBC Nucleated RBC % (auto) ESR 30 H PT INR Anion Gap 13 Estim Creat Clear Calc 47.5 Estimated GFR > 60 Random Glucose 105 Lactic Acid Calcium 9.4 Iron TIBC % Saturation Unsat Iron Binding Total Bilirubin 0.2 AST 19 ALT 16 Alkaline Phosphatase 130 H C-Reactive Protein 0.48 Total Protein 6.8 Albumin 3.7 Urine Color Urine Appearance Urine pH Ur Specific [place] Urine Protein Urine Glucose (UA) Urine Ketones Urine Blood Urine Nitrite Ur Leukocyte Esterase Urine RBC Urine WBC Ur Squamous Epith Cells Urine Bacteria Hyaline Casts Stool Occult Blood Blood Type O Positive Antibody Screen NEGATIVE 08/01/22 08/01/22 08/02/22 18:22 20:30 05:47 MCV 84.7 MCH 26.5 L MCHC 31.3 RDW 16.1 H Plt Count 353 MPV 9.4 Immature Gran % (Auto) Neut % (Auto) Lymph % (Auto) [place] % (Auto) Eos % (Auto) Baso % (Auto) Lymph # (Auto) [place] # (Auto) Eos # (Auto) Baso # (Auto) Abs Immat Gran (auto) Absolute Neuts (auto) Absolute Nucleated RBC 0.000 Nucleated RBC % (auto) 0.0 ESR PT INR Anion Gap Estim Creat Clear Calc Estimated GFR Random Glucose Lactic Acid 1.7 Calcium Iron TIBC % Saturation Unsat Iron Binding Total Bilirubin AST ALT Alkaline Phosphatase C-Reactive Protein Total Protein Albumin Urine Color Yellow Urine Appearance Clear Urine pH 5.5 Ur Specific [place] >= 1.030 H Urine Protein Negative Urine Glucose (UA) Negative Urine Ketones Negative Urine Blood Negative Urine Nitrite Positive H Ur Leukocyte Esterase Moderate (2+) H Urine RBC 0-2 Urine WBC 21-50 H Ur Squamous Epith Cells 0-2 Urine Bacteria 4+ Hyaline Casts 0-2 Stool Occult Blood Blood Type Antibody Screen 08/02/22 05:47 MCV MCH MCHC RDW Plt Count MPV Immature Gran % (Auto) Neut % (Auto) Lymph % (Auto) [place] % (Auto) Eos % (Auto) Baso % (Auto) Lymph # (Auto) [place] # (Auto) Eos # (Auto) Baso # (Auto) Abs Immat Gran (auto) Absolute Neuts (auto) Absolute Nucleated RBC Nucleated RBC % (auto) ESR PT INR Anion Gap 15 Estim Creat Clear Calc 57.9 Estimated GFR > 60 Random Glucose 96 Lactic Acid Calcium 9.4 Iron 29 L TIBC 309 % Saturation 9 L Unsat Iron Binding 280 Total Bilirubin AST ALT Alkaline Phosphatase C-Reactive Protein Total Protein Albumin Urine Color Urine Appearance Urine pH Ur Specific [place] Urine Protein Urine Glucose (UA) Urine Ketones Urine Blood Urine Nitrite Ur Leukocyte Esterase Urine RBC Urine WBC Ur Squamous Epith Cells Urine Bacteria Hyaline Casts Stool Occult Blood Blood Type Antibody Screen Microbiology Microbiology Results: Microbiology 08/01/22 18:22 Urine Culture - Preliminary Urine clean catch - Urine oconnor top Culture in progress. Assessment and Plan (1) Bright red blood per rectum: Status: Acute (2) UTI (urinary tract infection): Status: Acute (3) Anemia: Status: Acute Plan Pt is an 81-year-old female with a PMH significant for?unspecified dementia, unspecified cancer 15-20 years ago, and colitis who presents to the ED with?bright red blood per rectum since this morning. Pt will be admitted to the hospital for treatment further evaluation UTI, symptomatic anemia, and possible GI bleed. Iron def. anemia start iron supplement Bright red blood per rectum Possibly secondary to hemorroids, UC CT of abdomen/pelvis negative for masses\colitis Patient's H&H 9.9/30.5 low CRP, elevated ESR Clear liquid diet GI consult pending Follow CBC UTI UA positive for UTI ceftriaxone, started 08/01/2022 Hx of ulcerative colitis Continue mesalamine Back pain Patient was evaluated by PCP for back pain on Tuesday, x-rays and bone density scan negative CT of abd/pelvis today negative for fracture Acetaminophen for pain PT evaluation Dementia, unspecified Patient has been having cognitive impairment for the past 7-8 years Was diagnosed with severe dementia 2-3 years ago, has been declining since Continue donepezil Mood disorder Continuous escitalopram DNR/DNI DVT Prophylaxis: Pneumatic boots Pt will require a hospitalization of overnight for treatment of?UTI, and possible GI bleed. Time Spent With Patient Time: Total time managing care of this patient today ____ minutes. Quality Stroke Does the patient have a stroke diagnosis?: No VTE Prior VTE?: No VTE Risk Level:: Medical - moderate - high VTE Device Contraindication: N/A - Device Ordered VTE Drug Contraindication: Treatment Not Indicated
[2022-08-02] MEDS: Cocoa Butter/Zinc Oxide SUPP.RECT 1 SUPP PR ×2 (13:37→21:11)
[2022-08-02] MEDS: Ferrous Sulfate 324 MG TABLET.DR PO (13:37)
[2022-08-02] MEDS: Acetaminophen 325 MG TABLET 650 MG PO (13:49)
[2022-08-02 15:03] VITALS: BP 131/63; PULSE 73; RESP 20; TEMP 36.2; O2SAT 96
[2022-08-02] MEDS: cefTRIAXone sodium 1 GM in 0.9 % Sodium Chloride 50 ML IV (19:31)
[2022-08-02 19:39] VITALS: BP 134/60; PULSE 70; RESP 18; TEMP 37.1; O2SAT 95
[2022-08-02] MEDS: Donepezil HCl 5 MG TABLET PO (21:11)
[2022-08-03] VITALS (7 sets, daily range): BP systolic 113–173; BP diastolic 55–81; PULSE 67–80; RESP 16–18; TEMP 35.7–36.8; O2SAT 93–97
[2022-08-03 06:21] LABS: Hematocrit 32.1 % (37.0-47.0); Hemoglobin 10.1 g/dl (12.0-16.0); Mean Corpuscular HGB Conc 31.5 g/dl (31.0-35.0); Mean Corpuscular Hemoglobin 26.6 pg (27.0-33.0); Mean Corpuscular Volume 84.7 fL (80.0-98.0); Mean Platelet Volume 9.2 fL (9.4-12.3); Platelet Count 379 X10*3/uL (160-400); Red Blood Count 3.79 X10*6/uL (4.20-5.50); Red Cell Distribution Width 16.2 % (11.0-16.0); White Blood Count 9.4 X10*3/uL (4.8-10.8)
[2022-08-03 06:39] LABS: Anion Gap 15 (12-20); Blood Urea Nitrogen 12 mg/dL (9-16); Calcium 9.3 mg/dL (8.4-10.2); Carbon Dioxide 21 mmol/L (22-29); Chloride 111 mmol/L (96-108); Creatinine Clr Calc Pharmacy 57.9; Estimated Glomerular Filt Rate > 60; Glucose Random 96 mg/dL (60-115); Potassium 3.6 mmol/L (3.3-5.1); Sodium 143 mmol/L (135-145)
[2022-08-03] MEDS: Cholecalciferol (Vitamin D3) 25 MCG TABLET 50 MCG PO (08:11)
[2022-08-03] MEDS: Escitalopram Oxalate 20 MG TABLET PO (08:11)
[2022-08-03] MEDS: Ferrous Sulfate 324 MG TABLET.DR PO (08:11)
[2022-08-03] MEDS: Atorvastatin Calcium 20 MG TABLET PO (08:11)
[2022-08-03] MEDS: Loratadine 10 MG TABLET 5 MG PO (08:11)
[2022-08-03] MEDS: Mesalamine 400 MG CAP.DRTAB. 2400 MG PO (08:11)
[2022-08-03] MEDS: 0.9 % Sodium Chloride Flush 3 ML SYRINGE IVFLUSH ×2 (08:14→14:42)
[2022-08-03] MEDS: Cocoa Butter/Zinc Oxide SUPP.RECT 1 SUPP PR (08:14)
[2022-08-03] MEDS: Sodium Phosphate,Mono-Dibasic 133 ML ENEMA PR (11:22)
--- NOTE | 2022-08-03 11:49 | PC.NURSE ---
Fleets enema given with small formed BM with liquid returns after pt held for 15 minutes. No blood noted
--- NOTE | 2022-08-03 12:36 | HO.ANESPROP2 ---
[facility] Active Problems Active Problems: All Active Problems (Updated 08/02/22 @ 18:53 by Carlos Ortiz MD) Ulcerative colitis (Acute) Bright red blood per rectum (Acute) UTI (urinary tract infection) (Acute) GI bleed (Acute) Anemia (Acute) Family History Family history of problems with anesthesia: No Social History Social History Household Members: Spouse Housing: Assisted Living Facility Alcohol intake: never Patient Tobacco Use Status: Never used Tobacco Smoked in Last 30 Days: No Use of substances other than those prescribed or required for medical reasons: No Currently Displaying Signs/Symptoms of Drug Intoxication Withdrawal: No Any prior treatment program specific to substance use: No Have you been hit, kicked, punched, or otherwise hurt by someone within the past year? If so, by whom?: No Do you feel safe in your current relationship?: Yes Is there a partner from a previous relationship who is making you feel unsafe now?: No Are you made to feel afraid or neglected: No Advance Directives: No (son will come tomorrow) Advance Directives on File: No Do you have thoughts of harming others: None Do you have a plan to hurt others: No Plan Recently lost weight without trying: No Eating poorly because of decreased appetite: No Nutrition Risks: No Nutritional Risk Patient : No : No Poor oral hygiene: No service: No Meds Allergies Allergy/AdvReac Type Severity Reaction Status Date / Time No Known Allergies Allergy Verified 08/01/22 14:17 Active Medications: Current Medications Acetaminophen (Acetaminophen 325 Mg Tablet) 650 mg PO Q6H PRN PRN Reason: Pain, Mild (Pain Scale 1-3) Last Admin: 08/02/22 13:49 Dose: 650 mg Atorvastatin Calcium (Atorvastatin Calcium 20 Mg Tablet) 20 mg PO DAILY COUNTS INCLUDE 234 BEDS AT THE [facility] Last Admin: 08/03/22 08:11 Dose: 20 mg [place] Butter/Zinc Oxide ([place] Butter/Zinc Oxide Supp.Rect) 1 supp [place] BID COUNTS INCLUDE 234 BEDS AT THE [facility] Last Admin: 08/03/22 08:14 Dose: 1 supp Docusate Sodium (Docusate Sodium 100 Mg Capsule) 100 mg PO DAILY PRN PRN Reason: Constipation Donepezil HCl (Donepezil Hcl 5 Mg Tablet) 5 mg PO BEDTIME COUNTS INCLUDE 234 BEDS AT THE [facility] Last Admin: 08/02/22 21:11 Dose: 5 mg Escitalopram Oxalate (Escitalopram Oxalate 20 Mg Tablet) 20 mg PO DAILY COUNTS INCLUDE 234 BEDS AT THE [facility] Last Admin: 08/03/22 08:11 Dose: 20 mg Ferrous Sulfate (Ferrous Sulfate 324 Mg Tablet.Dr) 324 mg PO DAILY COUNTS INCLUDE 234 BEDS AT THE [facility] Last Admin: 08/03/22 08:11 Dose: 324 mg Ceftriaxone Sodium 1 gm/ (Sodium Chloride) 50 mls @ 100 mls/hr IV Q24H COUNTS INCLUDE 234 BEDS AT THE [facility] Last Infusion: 08/02/22 20:01 Dose: Infused Loratadine (Loratadine 10 Mg Tablet) 5 mg PO DAILY COUNTS INCLUDE 234 BEDS AT THE [facility] Last Admin: 08/03/22 08:11 Dose: 5 mg Mesalamine (Mesalamine 400 Mg Cap.Drtab.) 2,400 mg PO BID COUNTS INCLUDE 234 BEDS AT THE [facility] Last Admin: 08/03/22 08:11 Dose: 2,400 mg Pharmacy Consult (Consult Rx Perform Med Rec) 1 each MISCELLANE ONCE PRN PRN Reason: Consult order Sodium Biphosphate/Sodium Phosphate (Sodium Phosphate,[place]-Dibasic 133 Ml Enema) 133 ml [place] ONCE PRN PRN Reason: Pre-Op Surgical Prep Last Admin: 08/03/22 11:22 Dose: 133 ml Sodium Chloride (0.9 % Sodium Chloride Flush 3 Ml Syringe) 3 ml IVFLUSH QSHIFT COUNTS INCLUDE 234 BEDS AT THE [facility] Last Admin: 08/03/22 08:14 Dose: 3 ml Vitamin D (Cholecalciferol (Vitamin D3) 25 Mcg Tablet) 50 mcg PO DAILY COUNTS INCLUDE 234 BEDS AT THE [facility] Last Admin: 08/03/22 08:11 Dose: 50 mcg Home Medications Medication Instructions Recorded Confirmed Last Taken Type atorvastatin 20 mg tablet 20 mg PO DAILY 08/01/22 08/01/22 08/01/22 09:00 History cholecalciferol (vitamin D3) 50 50 mcg PO DAILY 08/01/22 08/01/22 08/01/22 09:00 History mcg (2,000 unit) tablet (Vitamin D3) donepezil 5 mg tablet 5 mg PO BEDTIME 08/01/22 08/01/22 07/31/22 History escitalopram oxalate 20 mg tablet 20 mg PO DAILY 08/01/22 08/01/22 08/01/22 09:00 History loratadine 5 mg chewable tablet 5 mg PO DAILY 08/01/22 08/01/22 08/01/22 09:00 History mesalamine 800 mg tablet,delayed 2,400 mg PO BID 08/01/22 08/01/22 08/01/22 09:00 History release Exam Exam Date and Time: August 03, 2022 1236 Height,Weight and Vital Signs: Height 5 ft 5 in Weight 68.8 kg Last Vital Signs Temp 98.2 F 08/03/22 07:15 Pulse 78 08/03/22 07:15 Resp 18 08/03/22 07:15 BP 145/63 H 08/03/22 07:15 Pulse Ox 97 08/03/22 07:15 O2 Del Method Room Air 08/03/22 07:15 Pertinent Lab Results Pertinent Lab Results: Laboratory Tests 08/01/22 08/01/22 08/01/22 15:16 15:26 15:26 WBC 15.1 H RBC 3.66 L Hgb 9.8 L Hct 30.5 L MCV 83.3 MCH 26.8 L MCHC 32.1 RDW 15.9 Plt Count 382 MPV 9.1 L Immature Gran % (Auto) 0.5 H Neut % (Auto) 77.5 H Lymph % (Auto) 14.8 L [place] % (Auto) 5.8 Eos % (Auto) 0.9 Baso % (Auto) 0.5 Lymph # (Auto) 2.2 Bradford # (Auto) 0.9 Eos # (Auto) 0.1 Baso # (Auto) 0.1 Abs Immat Gran (auto) 0.08 H Absolute Neuts (auto) 11.7 H Absolute Nucleated RBC 0.000 Nucleated RBC % (auto) 0.0 ESR PT 11.5 INR 1.0 Sodium Potassium Chloride Carbon Dioxide Anion Gap BUN Creatinine Estim Creat Clear Calc Estimated GFR Random Glucose Lactic Acid Calcium Iron TIBC % Saturation Unsat Iron Binding Total Bilirubin AST ALT Alkaline Phosphatase C-Reactive Protein Total Protein Albumin Urine Color Urine Appearance Urine pH Ur Specific Makinen Urine Protein Urine Glucose (UA) Urine Ketones Urine Blood Urine Nitrite Ur Leukocyte Esterase Urine RBC Urine WBC Ur Squamous Epith Cells Urine Bacteria Hyaline Casts Stool Occult Blood POSITIVE Blood Type Antibody Screen 08/01/22 08/01/22 08/01/22 15:26 15:26 15:26 WBC RBC Hgb Hct MCV MCH MCHC RDW Plt Count MPV Immature Gran % (Auto) Neut % (Auto) Lymph % (Auto) Bradford % (Auto) Eos % (Auto) Baso % (Auto) Lymph # (Auto) Bradford # (Auto) Eos # (Auto) Baso # (Auto) Abs Immat Gran (auto) Absolute Neuts (auto) Absolute Nucleated RBC Nucleated RBC % (auto) ESR 30 H PT INR Sodium 140 Potassium 3.6 Chloride 109 H Carbon Dioxide 22 Anion Gap 13 BUN 24 H Creatinine 0.82 Estim Creat Clear Calc 47.5 Estimated GFR > 60 Random Glucose 105 Lactic Acid Calcium 9.4 Iron TIBC % Saturation Unsat Iron Binding Total Bilirubin 0.2 AST 19 ALT 16 Alkaline Phosphatase 130 H C-Reactive Protein 0.48 Total Protein 6.8 Albumin 3.7 Urine Color Urine Appearance Urine pH Ur Specific Mak[place] Urine Protein Urine Glucose (UA) Urine Ketones Urine Blood Urine Nitrite Ur Leukocyte Esterase Urine RBC Urine WBC Ur Squamous Epith Cells Urine Bacteria Hyaline Casts Stool Occult Blood Blood Type O Positive Antibody Screen NEGATIVE 08/01/22 08/01/22 08/02/22 18:22 20:30 05:47 WBC 12.1 H RBC 3.73 L Hgb 9.9 L Hct 31.6 L MCV 84.7 MCH 26.5 L MCHC 31.3 RDW 16.1 H Plt Count 353 MPV 9.4 Immature Gran % (Auto) Neut % (Auto) Lymph % (Auto) Bradford % (Auto) Eos % (Auto) Baso % (Auto) Lymph # (Auto) Bradford # (Auto) Eos # (Auto) Baso # (Auto) Abs Immat Gran (auto) Absolute Neuts (auto) Absolute Nucleated RBC 0.000 Nucleated RBC % (auto) 0.0 ESR PT INR Sodium Potassium Chloride Carbon Dioxide Anion Gap BUN Creatinine Estim Creat Clear Calc Estimated GFR Random Glucose Lactic Acid 1.7 Calcium Iron TIBC % Saturation Unsat Iron Binding Total Bilirubin AST ALT Alkaline Phosphatase C-Reactive Protein Total Protein Albumin Urine Color Yellow Urine Appearance Clear Urine pH 5.5 Ur Specific Makinen >= 1.030 H Urine Protein Negative Urine Glucose (UA) Negative Urine Ketones Negative Urine Blood Negative Urine Nitrite Positive H Ur Leukocyte Esterase Moderate (2+) H Urine RBC 0-2 Urine WBC 21-50 H Ur Squamous Epith Cells 0-2 Urine Bacteria 4+ Hyaline Casts 0-2 Stool Occult Blood Blood Type Antibody Screen 08/02/22 08/03/22 08/03/22 05:47 05:25 05:25 WBC 9.4 RBC 3.79 L Hgb 10.1 L Hct 32.1 L MCV 84.7 MCH 26.6 L MCHC 31.5 RDW 16.2 H Plt Count 379 MPV 9.2 L Immature Gran % (Auto) Neut % (Auto) Lymph % (Auto) Bradford % (Auto) Eos % (Auto) Baso % (Auto) Lymph # (Auto) Bradford # (Auto) Eos # (Auto) Baso # (Auto) Abs Immat Gran (auto) Absolute Neuts (auto) Absolute Nucleated RBC 0.000 Nucleated RBC % (auto) 0.0 ESR PT INR Sodium 141 143 Potassium 3.5 3.6 Chloride 110 H 111 H Carbon Dioxide 20 L 21 L Anion Gap 15 15 BUN 16 12 Creatinine 0.73 0.73 Estim Creat Clear Calc 57.9 57.9 Estimated GFR > 60 > 60 Random Glucose 96 96 Lactic Acid Calcium 9.4 9.3 Iron 29 L TIBC 309 % Saturation 9 L Unsat Iron Binding 280 Total Bilirubin AST ALT Alkaline Phosphatase C-Reactive Protein Total Protein Albumin Urine Color Urine Appearance Urine pH Ur Specific Makinen Urine Protein Urine Glucose (UA) Urine Ketones Urine Blood Urine Nitrite Ur Leukocyte Esterase Urine RBC Urine WBC Ur Squamous Epith Cells Urine Bacteria Hyaline Casts Stool Occult Blood Blood Type Antibody Screen Airway Mallampati Class: III TM Dist: >3cm Neck ROM: Full Heart: RRar Lungs: CTA Assessment and Plan Assessment Anesthesia Assessment: Anesthesia Plan Discussed Final Anesthetic Review Family History of Problems with Anesthesia: No NPO: Yes Final Preanesthetic Review: Meds/Allgs Chart Reviewed, Consent Obtained/Reviewed and Anes Risks/Benef Reviewed Patient Risk: Low Procedure Risk: Low Anesthetic Plan Anesthetic Plan: MAC: Disposition: Standard PACU
--- NOTE | 2022-08-03 12:59 | MHC.SHP ---
Pre-Procedural Eval Section A Date of Service: 08/03/22 The patient is an INPATIENT: Yes Changes since office visit: Yes New Medical Problems, Yes Changes in Medication and Yes Patient answered all questions; No Cold of Flu in the past 2 weeks The History & Physical has been completed within 30 days and I have reviewed it.: Yes Section B Chief Complaint: Symptomatic anemia, BRBPR< GI bleed Allergies: Allergies Allergy/AdvReac Type Severity Reaction Status Date / Time No Known Allergies Allergy Verified 08/01/22 14:17 Plan I have reviewed the history and physical and performed a pertinent physical examination on my patient. No changes have occurred unless specified. Time Spent With Patient Time: Total time managing care of this patient today ____ minutes.
--- NOTE | 2022-08-03 12:59 | W.PM.OPN ---
Operative Note Operative Note Date of Service: 08/03/22 Narrative: FLEXIBLE SIGMOIDOSCOPY TILL 35 CMS WITH BIOPSIES Pre-op diagnosis: Rectal bleeding, ulcerative colitis Post-op diagnosis:?colon polyps, diverticulosis, hemorrhoids, inactive UC Endoscopist:? Carlos Ortiz MD Anesthesia:?MAC Consent: Indications for the procedure and potential complications of bleeding, perforation, reaction to medications and missed diagnosis were discussed with the Alo Baker ([phone]) patient's son and HCP and informed consent was obtained. Instrument: Olympus PCF H 190 L variable stiffness pediatric colonoscope Monitoring: Vital signs and clinical assessment, intermittent blood pressure monitoring, continuous EKG monitoring, Pulse oximetry and Carbon Dioxide monitoring were done throughout the procedure. Please see anesthesia flowsheet. Procedure: The patient was placed in the left lateral decubitis position and pre-procedure medications were administered. After a digital rectal examination of the ano-rectum, the video colonoscope was inserted into the rectum and advanced through the colon to 35 cms into the distal SC. The colonoscope was slowly withdrawn in a retrograde panoramic fashion and the colon mucosa was carefully examined including a retroflexed view of the rectum. Findings and interventions are described below. Procedure Difficulty: Without difficulty Findings: Sigmoid Colon: A few 5 to 10 mm polyps in the distal sc (likely pseudopolyps) - biopsies were obtained. Four discrete non-bleeding ulcers at 35 cms - biopsies obtained. Moderate to severe diverticulosis with luminal narrowing Rectum: Normal - biopsies obtained. Ano-rectum: Moderate internal hemorrhoids Colon preparation: Excellent Impression and Post Procedure Diagnosis: Colonoscopy Findings: A few 5 to 10 mm polyps in the distal sigmoid colon (likely pseudopolyps) - biopsies were obtained. Four discrete non-bleeding ulcers at 35 cms - biopsies obtained - possibly due to aspirin versus resolving ischemia. Moderate to severe diverticulosis seen in the sigmoid colon Moderate hemorrhoids on retroflexed exam. No blood seen in the distal colon during flexible sigmoidoscopy. Plan: Pt can be discharged home today. She can resume taking mesalamine suppositories for 2 weeks and stop if no recurrent bleeding (she has suppositories at home) I will contact the patient's son with pathology results Patient can FU with Dr Melendez (pt's primary GI at [facility]) as scheduled. Repeat Colonoscopy not indicated due to advanced age unless pt has symptoms. Above findings were reviewed with the patient's son and FU plan was reviewed with him
--- NOTE | 2022-08-03 13:21 | HO.PM.IMPN ---
Subjective Subjective Date of Service: 08/03/22 Interval History: Seen and evaluated Denies any fever or chills Hb stable less blood w stool No other overnight events Review of Systems Review of Systems: Yes all other systems are reviewed and are negative Physical Exam Vital Signs: Vital Signs: Last Vital Signs Temp 98.2 F 08/03/22 12:37 Pulse 69 08/03/22 12:37 Resp 17 08/03/22 12:37 BP 120/81 08/03/22 12:37 Pulse Ox 97 08/03/22 12:37 O2 Del Method Room Air 08/03/22 12:37 BMI result Body Mass Index 25.2 Const: Other: Constitutional : Awake, interactive, not in distress Neck : Normal inspection, Supple Cardiovascular : RRR, no JVP, no lower extremity edema Respiratory : good bilateral air entry, no crackles, wheezes or rhonchi Gastrointestinal: soft, lax, Normal bowel sounds, Non tender Skin : Warm, Dry Neurological : Alert & oriented x3, No focal deficit Objective Data Active Medications Acetaminophen (Acetaminophen 325 Mg Tablet) 650 mg PO Q6H PRN PRN Reason: Pain, Mild (Pain Scale 1-3) Last Admin: 08/02/22 13:49 Dose: 650 mg Documented By: NITO Atorvastatin Calcium (Atorvastatin Calcium 20 Mg Tablet) 20 mg PO DAILY [facility] Last Admin: 08/03/22 08:11 Dose: 20 mg Documented By: BRE [place] Butter/Zinc Oxide ([place] Butter/Zinc Oxide Supp.Rect) 1 supp [place] BID [facility] Last Admin: 08/03/22 08:14 Dose: 1 supp Documented By: BRE Docusate Sodium (Docusate Sodium 100 Mg Capsule) 100 mg PO DAILY PRN PRN Reason: Constipation Donepezil HCl (Donepezil Hcl 5 Mg Tablet) 5 mg PO BEDTIME [facility] Last Admin: 08/02/22 21:11 Dose: 5 mg Documented By: ABRAHAN Escitalopram Oxalate (Escitalopram Oxalate 20 Mg Tablet) 20 mg PO DAILY [facility] Last Admin: 08/03/22 08:11 Dose: 20 mg Documented By: BRE Ferrous Sulfate (Ferrous Sulfate 324 Mg Tablet.) 324 mg PO DAILY [facility] Last Admin: 08/03/22 08:11 Dose: 324 mg Documented By: BRE Ceftriaxone Sodium 1 gm/ (Sodium Chloride) 50 mls @ 100 mls/hr IV Q24H [facility] Last Infusion: 08/02/22 20:01 Dose: 0 mls/hr Documented By: ABRAHAN Loratadine (Loratadine 10 Mg Tablet) 5 mg PO DAILY [facility] Last Admin: 08/03/22 08:11 Dose: 5 mg Documented By: BRE Mesalamine (Mesalamine 400 Mg Cap.Drtab.) 2,400 mg PO BID [facility] Last Admin: 08/03/22 08:11 Dose: 2,400 mg Documented By: BRE Pharmacy Consult (Consult Rx Perform Med Rec) 1 each MISCELLANE ONCE PRN PRN Reason: Consult order Sodium Biphosphate/Sodium Phosphate (Sodium Phosphate,[place]-Dibasic 133 Ml Enema) 133 ml [place] ONCE PRN PRN Reason: Pre-Op Surgical Prep Last Admin: 08/03/22 11:22 Dose: 133 ml Documented By: RBE Sodium Chloride (0.9 % Sodium Chloride Flush 3 Ml Syringe) 3 ml IVFLUSH QSHIFT [facility] Last Admin: 08/03/22 08:14 Dose: 3 ml Documented By: BRE Vitamin D (Cholecalciferol (Vitamin D3) 25 Mcg Tablet) 50 mcg PO DAILY [facility] Last Admin: 08/03/22 08:11 Dose: 50 mcg Documented By: BRE Labs 08/03/22 05:25 08/03/22 05:25 Labs: Laboratory Results - last 24 hr 08/03/22 08/03/22 05:25 05:25 MCV 84.7 MCH 26.6 L MCHC 31.5 RDW 16.2 H Plt Count 379 MPV 9.2 L Absolute Nucleated RBC 0.000 Nucleated RBC % (auto) 0.0 Anion Gap 15 Estim Creat Clear Calc 57.9 Estimated GFR > 60 Random Glucose 96 Calcium 9.3 Microbiology Microbiology Results: Microbiology 08/01/22 18:22 Urine Culture - Preliminary Urine clean catch - Urine oconnor top Gram negative sedrick 08/01/22 20:17 Blood Culture - Preliminary Blood - Venous No growth after 24 hours. 08/01/22 20:18 Blood Culture - Preliminary Blood - Venous No growth after 24 hours. Assessment and Plan (1) Bright red blood per rectum: Status: Acute (2) UTI (urinary tract infection): Status: Acute (3) GI bleed: Status: Acute Plan Pt is an 81-year-old female with a PMH significant for?unspecified dementia, unspecified cancer 15-20 years ago, and colitis who presents to the ED with?bright red blood per rectum since this morning. Pt will be admitted to the hospital for treatment further evaluation UTI, symptomatic anemia, and possible GI bleed. Iron def. anemia start iron supplement Bright red blood per rectum Possibly secondary to hemorroids, UC CT of abdomen/pelvis negative for masses\colitis Patient's Hb stable 10 low CRP, elevated ESR Clear liquid diet GI to do colonoscopy today Follow CBC UTI UA positive for UTI ceftriaxone, started 08/01/2022 pending final culture Hx of ulcerative colitis Continue mesalamine Back pain Patient was evaluated by PCP for back pain on Tuesday, x-rays and bone density scan negative CT of abd/pelvis today negative for fracture Acetaminophen for pain PT evaluation Dementia, unspecified Patient has been having cognitive impairment for the past 7-8 years Was diagnosed with severe dementia 2-3 years ago, has been declining since Continue donepezil Mood disorder Continuous escitalopram DNR/DNI DVT Prophylaxis: Pneumatic boots Pt will require a hospitalization of overnight for treatment of?UTI, and possible GI bleed. Time Spent With Patient Time: Total time managing care of this patient today ____ minutes. Quality Stroke Does the patient have a stroke diagnosis?: No VTE Prior VTE?: No VTE Risk Level:: Medical - moderate - high VTE Device Contraindication: N/A - Device Ordered VTE Drug Contraindication: Treatment Not Indicated
--- NOTE | 2022-08-03 17:56 | PM.DS ---
DS: Providers Provider Date of Service: 08/03/22 Date of admission: 08/01/22 19:11 Primary care physician: Parag Snyder MD Consults: 08/01/22 19:13 Consult to Gastroenterology Routine Consulting Provider: Carlos Ortiz Reason for consultation: Symptomatic anemia, BRBPR, ?GI bleed, hx of colitis on mesalamine DS: Diagnosis Discharge Diagnosis (1) Bright red blood per rectum: Status: Acute (2) UTI (urinary tract infection): Status: Acute (3) GI bleed: Status: Acute (4) Anemia: Status: Acute DS: Summary Hospital Course Hospital Course: Admission note HPI Pt is an 81-year-old female with a PMH significant for?unspecified dementia, unspecified cancer 15-20 years ago, and colitis who presents to the ED with?bright red blood per rectum since this morning.? Patient with unspecified dementia at baseline, patient's short-term memory particularly affected.? Patient continually repeats same complaint and history within 30 seconds to 1 minute.? HPI supplemented through family and chart review.? Patient apparently lives with her at [facility], the currently at rehab and patient staying with her son.? Son notes that earlier today patient had a ?large amount? of bright red blood per rectum.? Patient has a history of colitis and has experienced mild rectal bleeding secondary to this in the past, has been well controlled on mesalamine.? Patient complains of mild suprapubic pain, but denies fevers, chills, nausea, diarrhea.? Occasional lightheadedness and dizziness, no LOC.? Patient also experienced an episode of ?sliding to the floor? last week when she attempted to stand up from her bed.? Patient has been complaining of lower back pain since.? Patient saw her PCP on Tuesday for further evaluation.? Workup with x-rays and bone density scans were unremarkable.? No chest pain/pressure, palpitations.? No shortness of breath.? Patient's son states that his mother was diagnosed with severe ulcerative colitis around 20 years ago, hospitalized prior at least twice for flare-ups.? Patient has ulcerative colitis has been mostly well controlled on mesalamine.? Patient did experience some breakthrough bleeding a few months ago though likely attributed to medication noncompliance secondary to patient's underlying dementia. In the ED patient was afebrile with variable blood pressure. Labs were significant for leukocytosis of 15.1, H&H 9.8/30.5.? Electrolytes WNL.? Renal function baseline.? Hepatic function baseline.? UA positive for UTI.? Stool positive for occult blood. CT?of abdomen and pelvis found no evidence for any active GI bleeding. Pt will be admitted to the hospital for treatment further evaluation UTI, symptomatic anemia, and possible GI bleed. Hospital course Iron def. anemia start iron supplement The patient was admitted for evaluation of Bright red blood per rectum secondary to hemorroids and history of UC. CT of abdomen/pelvis negative for masses\colitis. Patient's Hb remained stable 10 with low CRP, elevated ESR. Had colonoscopy showing internal hemorroids. GI recommended Meselamin supp for 2 weeks. Started on Iron supplement. Treated for UTI with ceftriaxone, started 08/01/2022. Sent home on Ceftin as urine culture grew E.Coli. Reporting Back pain. CT of abd/pelvis today negative for fracture. Evaluated by PT who felt she is safe and steady on her feet. Continue Ceftin as prescribed Meselamine and hemorroidal supp Iron supplement pills Follow with dr Ortiz outpatient for biopsy results Time Spent with Patient Time attestation: Total time managing care of this patient today ____ minutes. Discharge coordination time: Greater than 30 minutes Quality: Safe Use of Opioids Does Pt have an Active Cancer Diagnosis on the Problem List?: No Quality: Stroke Does the patient have a stroke diagnosis?: No Physical Exam Vital Signs: Vital Signs: Last Vital Signs Temp 96.2 F L 08/03/22 15:46 Pulse 80 08/03/22 15:46 Resp 18 08/03/22 15:46 BP 113/55 L 08/03/22 15:46 Pulse Ox 97 08/03/22 15:46 O2 Del Method Room Air 08/03/22 15:46 BMI result Body Mass Index 25.2 Const: Other: Constitutional : Awake, interactive, not in distress Neck : Normal inspection, Supple Cardiovascular : RRR, no JVP, no lower extremity edema Respiratory : good bilateral air entry, no crackles, wheezes or rhonchi Gastrointestinal: soft, lax, Normal bowel sounds, Non tender Skin : Warm, Dry Neurological : Alert & oriented x3, No focal deficit DS: Data Data Completed and Pending Pending studies at discharge: Pending at discharge 08/03/22 13:25 Surgical [PTH] Routine Labs on day of discharge: Laboratory Results - last 24 hr 08/03/22 08/03/22 05:25 05:25 WBC 9.4 RBC 3.79 L Hgb 10.1 L Hct 32.1 L MCV 84.7 MCH 26.6 L MCHC 31.5 RDW 16.2 H Plt Count 379 MPV 9.2 L Absolute Nucleated RBC 0.000 Nucleated RBC % (auto) 0.0 Sodium 143 Potassium 3.6 Chloride 111 H Carbon Dioxide 21 L Anion Gap 15 BUN 12 Creatinine 0.73 Estim Creat Clear Calc 57.9 Estimated GFR > 60 Random Glucose 96 Calcium 9.3 Preliminary micro results at discharge 08/01/22 18:22 Urine Culture - Preliminary Urine clean catch - Urine oconnor top Gram negative sedrick 08/01/22 20:17 Blood Culture - Preliminary Blood - Venous No growth after 24 hours. 08/01/22 20:18 Blood Culture - Preliminary Blood - Venous No growth after 24 hours. Imaging Chest x-ray: Radiologist's impression: ITS Impressions Abdomen/Pelvis CT 08/01/22 16:35 IMPRESSION: 1. No evidence for any active GI bleeding. 2. Incidental findings as above. Discharge Plan Discharge Anticipated Discharge Date/Time: 08/03/22 17:48 Patient Disposition: Home, Self-Care Discharge Diagnosis: blood per rectum UTI Referrals: Parag Snyder MD [Primary Care Provider] - 1 Week Discharge Medications: New cefuroxime axetil 500 mg tablet 500 mg PO BID Qty: 8 0RF mesalamine 1,000 mg suppository 1 g CA BEDTIME 14 Days Qty: 14 1RF ferrous sulfate 324 mg (65 mg iron) Tablet,Delayed Release (Dr/Ec) 324 mg PO DAILY Qty: 30 0RF Calmol-4 76-10 % Suppository 1 supp CA BID Qty: 24 0RF Continued atorvastatin 20 mg tablet 20 mg PO DAILY donepezil 5 mg tablet 5 mg PO BEDTIME escitalopram oxalate 20 mg tablet 20 mg PO DAILY loratadine 5 mg Tablet,Chewable 5 mg PO DAILY cholecalciferol (vitamin D3) [Vitamin D3] 50 mcg (2,000 unit) Tablet 50 mcg PO DAILY mesalamine 800 mg tablet,delayed release (DR/EC) 2,400 mg PO BID Discharge Orders: Discharge Order (Routine); Ordered 08/03/22 Ordered By: Cherelle Lawton Diet: Advance to usual diet Activity on Discharge: As tolerated Stand Alone Forms: Patient Portal Discharge page Care Plan Goals: Read below Health Concerns: Read below Plan of Treatment: Read below Assessment: You were admitted for evaluation of rectal bleeding and back pain. Evaluated by [employer] who did a lower endoscopy showing internal hemorroids. biopsies were taken and results pending. Urine infection was treated with IV antibiotics. Culture still pending. Continue Ceftin as prescribed Meselamine and hemorroidal supp Iron supplement pills Follow with dr Ortiz outpatient for biopsy results Discharge Date/Time: 08/03/22 18:16
--- NOTE | 2022-08-05 07:19 | P.CDIM_ITS ---
PROVIDER RESPONSE TEXT: To clarify, the appropriate diagnosis supported by the clinical indicators: Iron deficiency anemia secondary to chronic blood loss QUERY TEXT: PHYSICIAN'S DOCUMENTATION REQUEST Date of Query: 08/03/2022 12:22 PM EDT Patient Name: Korina Zuniga Admit Date: 08/01/2022 Dear Cherelle Lawton, A review of the medical record indicates additional documentation may be needed. Please review below and update the documentation accordingly. Clinical Indicators: PN: Dx- Iron def anemia Bright red blood per rectum Possibly secondary to hemorrhoids, UC Labs: Iron 29 L Stool occult blood positive Based on the above, could you clarify which of the following is the most likely type of anemia you ar e evaluating, treating, and/or monitoring? Iron deficiency anemia secondary to acute on chronic blood loss Iron deficiency anemia secondary to chronic blood loss Acute blood loss anemia due to (ulcerative colitis, hemorrhoids, internal, external, other source) Other Other (explain)Clinically unable to determine (explain)Thank you, Elizabeth Burnette, CCS, CDIS Use of terms such as suspected, likely, concern for, or probable (associated with a specific diagnosi s that is being evaluated, monitored, or treated as if it exists) are acceptable and can be coded in the inpatient se tting, when documented at the time of discharge. Please use your independent medical judgment in providing your response. THIS QUERY IS PART OF THE PERMANENT MEDICAL RECORD
--- NOTE | 2022-08-05 07:19 | P.CDIM_ITS ---
PROVIDER RESPONSE TEXT: To clarify, the appropriate diagnosis supported by the clinical indicators: Iron deficiency anemia secondary to chronic blood loss QUERY TEXT: PHYSICIAN'S DOCUMENTATION REQUEST Date of Query: 08/04/2022 06:34 AM EDT Patient Name: Korina Zuniga Admit Date: 08/01/2022 Dear Cherelle Lawton, A review of the medical record indicates additional documentation may be needed. Please review below and update the documentation accordingly. Clinical Indicators: PN: Dx - Iron deficiency anemia Bright red blood per rectum, possibly secondary to hemorrhoids, UC LABS: iron 29 L Stool occult blood positive Based on the above, could you clarify which of the following is the most likely type of anemia you ar e evaluating, treating, and/or monitoring? Iron deficiency anemia secondary to acute on chronic blood loss Iron deficiency anemia secondary to chronic blood loss Acute blood loss anemia due to (ulcerative colitis, hemorrhoids, internal, external, other source) Other Other (explain)Clinically unable to determine (explain)Thank you, Elizabeth Burnette, CCS, CDIS Use of terms such as suspected, likely, concern for, or probable (associated with a specific diagnosi s that is being evaluated, monitored, or treated as if it exists) are acceptable and can be coded in the inpatient se tting, when documented at the time of discharge. Please use your independent medical judgment in providing your response. THIS QUERY IS PART OF THE PERMANENT MEDICAL RECORD
== END 2022-08-03 18:16 | disposition home or self-care (01) | DRG 378 ==
LOC: HO.ED 18:22 → HO.EDOVER 19:20 → HO.S3 20:42
PROVIDERS: Internal Medicine; Internal Medicine Gastroenterology; Registered Nurse Emergency; Admitting Provider Student in an Organized Health Care Education/Training Program; Emergency Provider Student in an Organized Health Care Education/Training Program; PCP Family Medicine; Visit Provider Student in an Organized Health Care Education/Training Program
PROC: 0DJD8ZZ Inspection of Lower Intestinal Tract, Via Natural or Artificial Opening Endoscopic (ICD-10-PCS; CPT 45330; principal; 2022-08-03 13:00)
DX: K57.31 Diverticulosis of large intestine without perforation or abscess with bleeding (principal); K51.911 Ulcerative colitis, unspecified with rectal bleeding; N39.0 Urinary tract infection, site not specified; Z66 Do not resuscitate; D50.0 Iron deficiency anemia secondary to blood loss (chronic); K64.8 Other hemorrhoids; F39 Unspecified mood [affective] disorder; F03.90 Unspecified dementia, unspecified severity, without behavioral disturbance, psychotic disturbance, mood disturbance, and anxiety; K63.5 Polyp of colon; Z79.899 Other long term (current) drug therapy
CPT/HCPCS: 45331; 36415; 74178; 80048; 80053; 81001; 82272; 83540; 83605; 85025; 85027; 85610; 85652; 86140; 86850; 86900; 86901; 87040; 87086; 87186; 88305; 97161; 97530; 99221; 99285; J0696; Q9967